=== PATIENT | female | born 2000 | race Caucasian/White ===

== ENCOUNTER 2021-03-25 12:04 | Emergency (ER) | payer OTHER, SELFPAY ==
[2021-03-25 12:14] VITALS: BP 109/93; PULSE 124; RESP 16; TEMP 36.8; O2SAT 100
--- NOTE | 2021-03-25 13:05 | ED.ABDPAIN ---
HPI - Abdominal Pain General Chief Complaint: Abdominal Pain Stated Complaint: abdominal pain/diarrhea Source: patient and RN notes reviewed Limitations: no limitations History of Present Illness HPI narrative: The vaccinated patient, non-smoker/nondrinker nurse student, presents with diarrhea. Patient states she has had 1/2-week history of diarrhea x5/day that is almost purely water. No fever, abdominal pain, foreign travel, sick family, weight loss; no loss of taste/smell, CP, vomiting, S OB.. Symptoms have slightly improved today to 2 times a day with probiotic, and is unlike her mild diarrhea associated with final exams/stress. Related Data Home Medications Medication Instructions Recorded Confirmed norethindrone ac-eth estradiol 1 tablet PO DAILY 03/25/21 03/25/21 [Loestrin 1.5/ ()] Allergies Allergy/AdvReac Type Severity Reaction Status Date / Time azithromycin [From Zithromax] AdvReac Nausea Verified 03/25/21 12:18 Review of Systems Review of Systems: The patient has been informed that they may have pre-hypertension or Hypertension based on a BP reading in the department. I recommend that the patient call the primary care provider listed on their discharge instructions or a physician of their choice this week to arrange follow up for further evaluation of possible pre-hypertension or Hypertension General/Constitutional: No weight loss,fever Eyes: N0: Redness,discharge Ears/Nose/Throat: No: Epistaxis,ear discharge Respiratory: Denies: Hemoptysis Gastrointestinal: No Vomiting, Bleeding-rectal Skin: No Lumps, eruption Neurologic: No Focal Weakness,Sz Hematologic: Denies: Petechiae/Purpura Psychiatric: No: Suicida ideationl All Other Systems: Reviewed and Negative PMFSH Comments At time of signature, agree with nursing past medical, surgical, social and family history. There is no relevant family history pertinent to the presenting complaint Exam Narrative: General Appearance: Well appearing, No distress EYE: PERRLA, Conjunctiva clear Ears: External ear normal Nose: Normal nose Mouth/Throat: Normal appearing, Normal lips Neck: Supple Respiratory: Airway patent, No respiratory distress Cardiovascular: RRR Abdomen: Soft, Non-tender, Musculoskeletal: Full ROM Skin: Warm, Dry Neurological: A&O x3, CN II-X intact Psychiatric: Normal mood, Normal affect Course Vital Signs Vital signs: Vital Signs Temperature 98.3 F 03/25/21 12:14 Pulse Rate 124 H 03/25/21 12:14 Respiratory Rate 16 03/25/21 12:14 Blood Pressure 109/93 H 03/25/21 12:14 Pulse Oximetry 100 03/25/21 12:14 Temperature 98.3 F 03/25/21 12:14 Pulse Rate 124 H 03/25/21 12:14 Respiratory Rate 16 03/25/21 12:14 Blood Pressure 109/93 H 03/25/21 12:14 Pulse Oximetry 100 03/25/21 12:14 Discharge Plan Discharge Clinical Impression: Diarrhea Qualifiers: Diarrhea type: unspecified type Qualified Code(s): R19.7 - Diarrhea, unspecified Patient Disposition: Home, Self-Care Condition: Stable Instructions: Acute Diarrhea (ED) Additional Instructions: You may try OTC Imodium also; use prescription meds sparingly -at most daily. Prescriptions: New diphenoxylate-atropine [Lomotil] 2.5-0.025 mg tablet 1 tablet PO DAILY Qty: 5 RF: 0 loperamide [Imodium A-D] 2 mg tablet 2 mg PO TID PRN (Reason: loose stool) Qty: 10 RF: 0 No Action norethindrone ac-eth estradiol [Loestrin 1.5 ()] 1.5-30 mg-mcg Tablet 1 tablet PO DAILY RF: 0 Follow-up/Referrals: UNKNOWN,DOCTOR [Primary Care Provider] - Stand Alone Forms: Work/School Release IP
[2021-03-25 13:15] VITALS: PULSE 94
[2021-03-26 18:19] LABS: SARS-CoV-2 RNA PCR Negative
== END 2021-03-25 13:16 | disposition home or self-care (01) ==
PROVIDERS: Emergency Provider Emergency Medicine
DX: R19.7 Diarrhea, unspecified (principal); Z20.822 Contact with and (suspected) exposure to COVID-19
CPT/HCPCS: 99213; C9803; G0463; U0003; U0005